=== PATIENT | female | born 1995 | race Caucasian/White ===

== ENCOUNTER 2021-05-05 11:14 | Emergency (ER) | payer BC, SELFPAY ==
--- NOTE | ~2021-05-05 | US_ITS ---
EXAMINATION: US pelvic complete w TV DATE: 05/05/2021 12:20 INDICATION: Dysfunctional vaginal bleeding. 8 weeks . Comparison:Ultrasound dated 08/01/2019 TECHNIQUE: Multiple transabdominal and endovaginal sonographic images of the pelvis performed. FINDINGS: The uterus measures 7.6 x 3.4 x 5.3 cm. The endometrial complex measures 8 mm. The right ovary measures 2.8 x 2 x 1.5 cm and the left ovary measures 3 x 1.6 x 1.6 cm. There are sm all follicles in each ovary. Normal doppler signal in both ovaries. There is no free fluid in the pelvis. There are no abnormal masses seen on either side. IMPRESSION: 1. Unremarkable pelvic ultrasound. Reviewed, dictated and finalized at location A.
[2021-05-05 11:20] VITALS: BP 123/74; PULSE 79; RESP 18; TEMP 36.9; O2SAT 96
--- NOTE | 2021-05-05 11:50 | ED.GENADULT ---
HPI - General Adult General Chief complaint: Vaginal Bleeding Stated complaint: bleeding/sharp pains Source: patient Mode of arrival: ambulatory Limitations: no limitations History of Present Illness HPI narrative: Jose is a 25F with a pmh of Graves s/p thyroidectomy, hypocalcemia, and asthma that presented to the ER with heavy vaginal bleeding. She delivered her first baby on 03/03 and had light bleeding for a few weeks. It stopped but started again on 04/02. She was soaking through 10 pads a day but it became more severe today. She is has already soaked through several tampons and pads today. In addition she get intermittent sharp stabbing pain in her right pelvis a few times per hour. Related Data Home Medications Medication Instructions Recorded Confirmed albuterol sulfate 2 puff INHALATION QID PRN 06/27/19 05/05/21 calcitriol 2.5 mcg PO BID 06/27/19 05/05/21 calcium carbonate [Calcium 600] 800 mg PO QID 06/27/19 05/05/21 levothyroxine 305 mcg PO DAILY 06/27/19 05/05/21 Allergies Allergy/AdvReac Type Severity Reaction Status Date / Time latex Allergy Rash Verified 05/05/21 11:26 prednisone Allergy Rash Verified 05/05/21 11:26 Sulfa (Sulfonamide Allergy Rash Verified 05/05/21 11:26 Antibiotics) Review of Systems Constitutional: Constitutional: Reports no additional constitutional complaints Eyes: Eyes: Reports no additional eye complaints ENT: Reports system reviewed and no additional complaints, except as documented Cardiovascular: Cardiovascular: Reports no additional cardiovascular complaints Respiratory: Respiratory: Reports no additional respiratory complaints, Denies cough and Denies dyspnea Gastrointestinal: Gastrointestinal: Reports no additional gastrointestinal complaints, Denies diarrhea, Denies nausea and Denies vomiting Genitourinary: Genitourinary: Reports as per HPI Musculoskeletal: Musculoskeletal: Reports no additional musculoskeletal complaints Integumentary/Breasts: Skin/Breast: Reports system reviewed and no additional complaints, except as docu Neurologic: Reports system reviewed and no additional complaints, except as documented Psychiatric: Psychiatric: Reports no additional psychiatric complaints Endocrine: Endocrine: Reports no additional endocrine complaints Hematologic/Lymphatic: Hematologic/Lymphatic: Reports no additional hematologic/lymphatic complaints Allergic/Immunologic: Allergic/Immunologic: Reports no additional allergic/immunologic complaints [facility] Past Medical History Medical History (Updated 05/05/21 @ 13:24 by Leo Artis DO) Anxiety H/O Graves' disease PTSD (post-traumatic stress disorder) Surgical History Surgical History History of thyroidectomy, total S/P subtotal parathyroidectomy Family History Family History Other Adopted Social History Social History Smoking status: Never smoker Alcohol intake: never Substance use: never Substance use type: does not use Gender identity (if verbalized by the patient): Female Spiritual care concerns: Yes Agree to blood products: Yes Exam Const: General: no acute distress and alert Orientation/consciousness: patient oriented x3 Limitations: No altered mental status HENMT: Head: normal to inspection Other: atraumatic Eyes: Conjunctivae: conjunctivae normal Pupils: Equal, round and reactive pupils present Neck: Neck: normal visual inspection Resp: Effort & Inspection: normal respiratory effort Auscultation: clear to auscultation bilaterally Cardio: Rate: regular rate Rhythm: regular rhythm GI: Inspection: non-distended GI Palp: Yes Soft to palpation and No Tenderness to palpation present (GI) : General: Yes no CVA tenderness Urinary Catheter: Urinary Catheter: patent and draining Back/Spine/Pelv
[2021-05-05 12:04] LABS: Basophils Absolute Auto 0.03 K/mm3 (0.00-0.10); Basophils Percent Auto 0.4 % (0.0-1.0); Eosinophils Absolute Auto 0.13 K/mm3 (0.02-0.50); Eosinophils Percent Auto 1.7 % (1.0-6.0); Hematocrit 41.2 % (35.0-49.0); Hemoglobin 13.4 g/dL (12.0-15.0); Immature Granulocyte Absolute 0.02 K/mm3 (0.00-0.00); Immature Granulocyte Percent A 0.3 % (0.0-0.0); Lymphocytes Absolute Auto 2.69 K/mm3 (1.10-4.50); Lymphocytes Percent Auto 34.4 % (18.0-42.0); Mean Corpuscular HGB Conc 32.5 g/dL (32.0-36.0); Mean Corpuscular Volume 89.2 fL (78.0-102.0); Mean Platelet Volume 8.7 fl (9.2-11.8); Monocytes Absolute Auto 0.42 K/mm3 (0.10-0.90); Monocytes Percent Auto 5.4 % (2.0-11.0); Neutrophils Absolute Auto 4.5 K/mm3 (1.7-7.2); Neutrophils Percent Auto 57.8 % (50.0-70.0); Platelet Count Result 297 K/mm3 (150-420); Red Blood Count 4.62 M/mm3 (4.20-5.40); White Blood Count 7.8 K/mm3 (4.8-10.8)
[2021-05-05 12:05] LABS: Add Urine Microscopic? NO; Appearance Urine Clear (Clear); Bilirubin Urine Negative (Negative); Blood Urine Negative (Negative); Color Urine Light Yellow (Yellow); Glucose Urine UA Negative (Negative); Ketones Urine Negative (Negative); Leukocyte Esterase Ur Negative (Negative); Nitrate Urine Negative (Negative); Protein Urine Negative (Negative); Specific Grav Ur 1.015 (1.010-1.020); Urobilinogen Urine 0.2 mg/dL (0.2-1.0)
[2021-05-05 12:13] LABS: Prothrombin Time 10.7 Seconds (9.50-12.10)
[2021-05-05 12:27] LABS: Alanine Aminotransferase 25 U/L (14-59); Albumin Level 3.5 g/dL (3.4-5.0); Alkaline Phosphatase 93 U/L (46-116); Anion Gap 10 mmol/L (8-16); Aspartate Amino Transferase 12 U/L (15-37); Bilirubin,Total 0.3 mg/dL (0.00-1.00); Blood Urea Nitrogen 19 mg/dL (7-18); Calcium 6.9 mg/dL (8.5-10.1); Carbon Dioxide 27 mmol/L (21-32); Chloride 105 mmol/L (98-108); Estimated CRCL calculation 145 ml/min; Estimated Glomerular Filt Rate > 60; Glucose 86 mg/dL (70-99); Osmolality Calculated 295 mOsm/kg (285-295); Potassium 3.9 mmol/L (3.5-5.1); Sodium 142 mmol/L (136-145); Total Protein 7.1 g/dL (6.4-8.2)
[2021-05-05 12:33] LABS: Beta HCG Quantitative < 1.00 mIU/mL (0-6); Thyroid Stimulating Hormone 4.52 uIU/mL (0.36-3.74)
[2021-05-05 13:51] VITALS: BP 149/79; PULSE 77; RESP 20; TEMP 36.6; O2SAT 100
== END 2021-05-05 13:55 | disposition home or self-care (01) ==
PROVIDERS: Emergency Provider Family Medicine
DX: N92.1 Excessive and frequent menstruation with irregular cycle (principal); E05.00 Thyrotoxicosis with diffuse goiter without thyrotoxic crisis or storm
CPT/HCPCS: 36415; 76830; 76856; 80053; 81003; 84443; 84702; 85025; 85610; 99282; 99284

== ENCOUNTER 2022-01-28 19:23 | Emergency (ER) | payer BC, MEDICAID, SELFPAY ==
[2022-01-28 19:25] VITALS: BP 130/93; PULSE 103; RESP 20; TEMP 36.3; O2SAT 97
[2022-01-28] MEDS: KETOROLAC (*BKC) 60 MG/2 ML VIAL IM (20:20)
[2022-01-28] MEDS: SODIUM CHLORIDE 0.9% IV 1,000 ML 999 ML IV CONT (20:41)
[2022-01-28 20:44] VITALS: BP 129/102; PULSE 95; RESP 20; O2SAT 97
[2022-01-28 20:46] LABS: Basophils Absolute Auto 0.03 K/mm3 (0.00-0.10); Basophils Percent Auto 0.5 % (0.0-1.0); Eosinophils Absolute Auto 0.04 K/mm3 (0.02-0.50); Eosinophils Percent Auto 0.6 % (1.0-6.0); Hematocrit 41.9 % (35.0-49.0); Hemoglobin 13.5 g/dL (12.0-15.0); Immature Granulocyte Absolute 0.01 K/mm3 (0.00-0.00); Immature Granulocyte Percent A 0.2 % (0.0-0.0); Lymphocytes Absolute Auto 1.96 K/mm3 (1.10-4.50); Lymphocytes Percent Auto 31.4 % (18.0-42.0); Mean Corpuscular HGB Conc 32.2 g/dL (32.0-36.0); Mean Corpuscular Hemoglobin 27.7 pg (27.0-31.0); Mean Corpuscular Volume 85.9 fL (78.0-102.0); Mean Platelet Volume 9.1 fl (9.2-11.8); Monocytes Absolute Auto 0.59 K/mm3 (0.10-0.90); Monocytes Percent Auto 9.5 % (2.0-11.0); Neutrophils Absolute Auto 3.6 K/mm3 (1.7-7.2); Neutrophils Percent Auto 57.8 % (50.0-70.0); Platelet Count Result 305 K/mm3 (150-420); Red Blood Count 4.88 M/mm3 (4.20-5.40); Red Cell Distribution Width 12.4 % (11.6-14.4); White Blood Count 6.2 K/mm3 (4.8-10.8)
[2022-01-28 21:15] LABS: Alanine Aminotransferase 38 U/L (14-59); Albumin Level 3.4 g/dL (3.4-5.0); Alkaline Phosphatase 109 U/L (46-116); Anion Gap 10 mmol/L (8-16); Aspartate Amino Transferase 22 U/L (15-37); Bilirubin,Total 0.4 mg/dL (0.00-1.00); Blood Urea Nitrogen 16 mg/dL (7-18); Carbon Dioxide 26 mmol/L (21-32); Chloride 102 mmol/L (98-108); Estimated CRCL calculation 143 ml/min; Estimated Glomerular Filt Rate > 60; Glucose 97 mg/dL (70-99); Osmolality Calculated 287 mOsm/kg (285-295); Potassium 4.2 mmol/L (3.5-5.1); Sodium 138 mmol/L (136-145); Thyroid Stimulating Hormone 0.18 uIU/mL (0.36-3.74); Total Protein 7.4 g/dL (6.4-8.2)
[2022-01-28 21:18] LABS: Calcium < 5.0 mg/dL (8.5-10.1)
--- NOTE | 2022-01-28 21:20 | ED.GENADULT ---
HPI - General Adult General Chief complaint: Unspecified Stated complaint: double vision, achy body Time Seen by Provider: 01/28/22 19:27 Source: patient and RN notes reviewed Mode of arrival: ambulatory Limitations: no limitations History of Present Illness MD complaint: muscle spasms, pain, AGUDELO and recurrent blurred vision Onset (ago): day(s) (2) Location: head, upper extremity and lower extremity Severity: mild Severity scale (1-10): 2 Quality: aching, dull and constant Pain Consistency: constant Relieving factors: none Exacerbating factors: none Associated symptoms: nausea/vomiting Treatments prior to arrival: other (patient is not taking calcium tabs as Rxed) Related Data Home Medications Medication Instructions Recorded Confirmed albuterol sulfate 90 mcg/actuation 2 puff inhalation QID PRN 06/27/19 01/28/22 aerosol inhaler Shortness Of Breath calcitriol 0.5 mcg capsule 2.5 mcg PO BID 06/27/19 01/28/22 calcium carbonate 600 mg calcium 800 mg PO QID 06/27/19 01/28/22 (1,500 mg) tablet (Calcium) levothyroxine 175 mcg tablet 305 mcg PO DAILY 06/27/19 01/28/22 Allergies Allergy/AdvReac Type Severity Reaction Status Date / Time latex Allergy Rash Verified 01/28/22 19:54 prednisone Allergy Rash Verified 01/28/22 19:54 Sulfa (Sulfonamide Allergy Rash Verified 01/28/22 19:54 Antibiotics) Review of Systems Review of Systems: All systems reviewed & are unremarkable except as noted in HPI and below Constitutional: Constitutional: Reports no additional constitutional complaints Eyes: Eyes: Reports no additional eye complaints ENT: Reports system reviewed and no additional complaints, except as documented Cardiovascular: Cardiovascular: Reports no additional cardiovascular complaints Respiratory: Respiratory: Reports no additional respiratory complaints Gastrointestinal: Gastrointestinal: Reports no additional gastrointestinal complaints Genitourinary: Genitourinary: Reports no additional female genitourinary complaints Musculoskeletal: Musculoskeletal: Reports no additional musculoskeletal complaints Integumentary/Breasts: Skin/Breast: Reports system reviewed and no additional complaints, except as docu Neurologic: Reports system reviewed and no additional complaints, except as documented Psychiatric: Psychiatric: Reports no additional psychiatric complaints Endocrine: Endocrine: Reports no additional endocrine complaints Hematologic/Lymphatic: Hematologic/Lymphatic: Reports no additional hematologic/lymphatic complaints Allergic/Immunologic: Allergic/Immunologic: Reports no additional allergic/immunologic complaints PMF[facility] Past Medical History Medical History Anxiety H/O Graves' disease Hypocalcemia PTSD (post-traumatic stress disorder) Surgical History Surgical History History of thyroidectomy, total S/P subtotal parathyroidectomy Family History Family History Other Adopted Social History Social History Smoking status: Never smoker Alcohol intake: never Substance use: never Substance use type: does not use Gender identity (if verbalized by the patient): Female Spiritual care concerns: Yes Agree to blood products: Yes Exam Const: General: healthy appearing and no acute distress Nutritional Appearance: well nourished Orientation/consciousness: patient oriented x3 Limitations: no limitations HENMT: Head: normal to inspection Ears: external ears normal, TM's normal bilaterally and EAC's normal General nose exam: Normal external nose present and Normal nares present Face and sinus: normal facial exam and sinuses nontender Mouth: Yes Normal oral and palatal mucosa present and Yes moist mucous membranes Teeth and gingiva: dentition normal Th
[2022-01-28 21:22] VITALS: BP 124/93; PULSE 86; RESP 20; O2SAT 98
[2022-01-28] MEDS: CALCIUM CARBONATE (TUMS) 500 MG (200 MG ELEMENTAL) 1000 MG PO (21:35)
[2022-01-28] MEDS: CALCIUM GLUCONATE 1,000 MG/10 ML VIAL 1000 MG IV PUSH (21:43)
[2022-01-28 21:48] VITALS: BP 129/83; PULSE 90; RESP 18; O2SAT 99
[2022-01-28 22:00] LABS: Add Urine Microscopic? YES; Bilirubin Urine Negative (Negative); Blood Urine Negative (Negative); Color Urine Yellow (Yellow); Glucose Urine UA Negative (Negative); Ketones Urine Negative (Negative); Leukocyte Esterase Ur Trace (Negative); Nitrate Urine Negative (Negative); Protein Urine Negative (Negative); Specific Grav Ur 1.025 (1.010-1.020)
[2022-01-28 22:12] LABS: Appearance Urine Slightly Cloudy (Clear); Bacteria Urine 4+ /hpf; Squamous Epithelial Cell Urine Many /hpf (Few); WBC Urine 0-3 /hpf (0-3)
[2022-01-28 22:56] VITALS: BP 101/79; PULSE 86; RESP 18; O2SAT 97
[2022-01-28 23:30] VITALS: BP 126/89; PULSE 85; RESP 18; TEMP 36.4; O2SAT 97
== END 2022-01-28 23:35 | disposition home or self-care (01) ==
PROVIDERS: Emergency Provider Emergency Medicine
DX: E83.51 Hypocalcemia (principal); E05.90 Thyrotoxicosis, unspecified without thyrotoxic crisis or storm; N39.0 Urinary tract infection, site not specified
CPT/HCPCS: 36415; 80053; 81001; 84443; 85025; 96361; 96365; 96372; 96375; 99284; A9270; J0610; J0696; J1885; J7030